=== PATIENT | male | born 1970 | race Caucasian/White ===

== ENCOUNTER 2020-11-25 13:19 | Outpatient (REF) | payer OTHER, SELFPAY ==
--- NOTE | 2020-11-25 14:47 | MHC.AU.MED ---
Medical Clearance for Hearing Instrumentation Date: 12/01/20 Patient Name: Steve Singer Date of : 1970 Primary Care Provider: Laz Mims MD We have seen your patient on 11/25/20 and have determined that they are a candidate for amplification (See accompanying report). Specifically, they would benefit from: Hearing aid use in both ears There is a statute that addresses Medical Evaluation Requirements prior to fitting a patient with a hearing aid. According to [place] statute [facility] CMR:6.03(1), (a) General. Except as provided in 265 CMR 6.03(1)(b), a risk tech shall not sell a hearing aid unless the prospective user has presented to the risk tech a written statement signed by a licensed physician that states that the patient's hearing loss has been medically evaluated and the patient may be considered a candidate for a hearing aid. The medical evaluation must have taken place within the preceding six months. Please note: Due to the [place] Statute referenced above, we cannot accept a signature other than that of a licensed physician. HEALTH CARE SANITARY TECHNICIAN and PA signatures cannot be accepted. I am in agreement with the above recommendation. There is no medical contraindication for hearing instrumentation. Physician Signature Date Physician Name (Printed)
--- NOTE | 2020-11-25 17:13 | MHC.AU.HAS ---
Hearing Aid Evaluation Date of Visit: 11/25/20 Historical Information: Description of Hearing: Right ear- Normal at 250 Hz, sloping to a mild to severe sensorineural hearing loss from 500-8000 Hz. Left ear- Mild sloping to severe sensorineural hearing loss from 250-8000 Hz. Current personal amplification information, if applicable: Older model Oticon miniRITE Summary: Mr. Singer was seen today for a hearing aid evaluation. He is working with [facility] to get new hearing aids. His current aids are no longer working and he has significant difficulties communicating without them. Discussed hearing aid options and technologies. Recommend updated Oticon CRAIG aids. He is agreeable to this. Also set patient up with a loaner set of Oticon Agil miniRITE aids (SN: [id number], [id number]) with size 2 85 gain receivers and power domes to use in the meantime, as he was having significant difficulties throughout today's visit and relied heavily on his to communicate. Hearing Aid Prescription: Based on the individual?s shared listening needs, communication environments, dexterity, desire for connectivity, and personal preferences, the following prescription for amplification has been made: Right ear: Business Continuity Planning Director: Oticon Model: More 2 miniRITE-R Battery Size: Rechargeable Color: 44 - Silver Advertising Director: Size 2 100 gain Tubing: Type of Dome: Type of Mold: Power mold Left ear: Left ear prescription to be same as Right Hearing Aid above: Business Continuity Planning Director: Oticon Model: More 2 miniRITE-R Battery Size: Rechargeable Color: 44 - Silver Advertising Director: Size 2 100 gain Type of Mold: Power mold Plan of Care: Earmold Impressions Taken. Medical Clearance to be requested from PCP/ENT. Hearing Instrument Fitting to be scheduled when materials arrive. Wheeler quote being sent to [facility]. Once approved, hearing aids will be ordered. Primary Diagnosis: H90.3 Bilateral Sensorineural Hearing Loss Signature: Provider: Mike Bright, CCC-A
--- NOTE | 2020-11-25 17:14 | MHC.AU.MED ---
Medical Clearance for Hearing Instrumentation Date: 11/30/20 Patient Name: Steve Singer Date of : 1970 Referring Provider: Jeff Pedersen MD We have seen your patient on 11/25/20 and have determined that they are a candidate for amplification (See accompanying report). Specifically, they would benefit from: Hearing aid use in both ears There is a statute that addresses Medical Evaluation Requirements prior to fitting a patient with a hearing aid. According to [place] statute 265 CMR:6.03(1), (a) General. Except as provided in 265 CMR 6.03(1)(b), a hearing aid repair technician shall not sell a hearing aid unless the prospective user has presented to the hearing aid repair technician a written statement signed by a licensed physician that states that the patient's hearing loss has been medically evaluated and the patient may be considered a candidate for a hearing aid. The medical evaluation must have taken place within the preceding six months. Please note: Due to the [place] Statute referenced above, we cannot accept a signature other than that of a licensed physician. INDUSTRIAL TRAINER and PA signatures cannot be accepted. I am in agreement with the above recommendation. There is no medical contraindication for hearing instrumentation. Physician Signature Date Physician Name (Printed)
== END 2020-11-25 13:20 | disposition home or self-care (01) ==
LOC: HO.HAP 13:19
PROVIDERS: Visit Provider Internal Medicine
DX: Z46.1 Encounter for fitting and adjustment of hearing aid (principal); H90.3 Sensorineural hearing loss, bilateral
CPT/HCPCS: 92591

== ENCOUNTER 2021-08-10 14:50 | Outpatient (REF) | payer SELFPAY | END 2021-08-10 14:51 | disposition home or self-care (01) | LOC: HO.HAP 14:50 | PROVIDERS: Visit Provider Internal Medicine | DX: Z13.89 Encounter for screening for other disorder (principal) ==

== ENCOUNTER 2022-09-19 08:38 | Outpatient (REF) | payer SELFPAY | END 2022-09-19 08:39 | disposition home or self-care (01) | LOC: HO.HAP 08:38 | PROVIDERS: Visit Provider Internal Medicine | DX: Z46.1 Encounter for fitting and adjustment of hearing aid (principal); H90.3 Sensorineural hearing loss, bilateral | CPT/HCPCS: V5267 ==

== ENCOUNTER 2023-12-01 10:46 | Outpatient (REF) | payer SELFPAY ==
--- NOTE | 2023-12-01 11:30 | MHC.AU.HA3 ---
Hearing Instrument Follow-Up- Binaural Date of Visit: 12/01/23 Right Ear: Luis, Model, Color, Serial Number: [id number] Route Inspector Repair Warranty: 01/10/2024 Route Inspector Loss and Damage Warranty: 01/10/2024 [facility] Service Plan: 12/17/21 Battery Size: Rechargeable Technical Translator/Slim Tube: Size 2 100 gain Earmold/Dome/CShell/SlimTip:Power mold SN: [id number] Warranty: 01/10/2024 Type of Wax Guard: Prowax Dispensed By: [facility] Date of Fittin12/17/2020 Left Ear: Luis, Model, Color, Serial Number: [id number] Route Inspector Repair Warranty: 01/10/2024 Route Inspector Loss and Damage Warranty: 01/10/2024 [facility] Service Plan: 12/17/21 Battery Size: Rechargeable Technical Translator/Slim Tube: Size 2 100 gain Earmold/Dome/CShell/SlimTip: Power mold SN: [id number] Warranty: 01/10/2024 Type of Wax Guard: Prowax Dispensed By: [facility] Date of Fittin12/17/2020 Follow-Up Summary: Steve is here with both hearing aids not charging. Left embedded machine deicer element winder earmold machine deicer element winder wire is also broken with part of it stuck in the hearing aid. Sending his aids, molds, and blood bank attendant for under warranty repair. Prepared loaners for him. Checked his ears due to concern for wax. Found hard appearing cerumen deep in canals, recommended use of wax softening drops to manage. Recommendations: Recommendations: Patient will be contacted when materials have arrived. Call to nut picker aids & blood bank attendant, return loaners & blood bank attendant, appointment not needed. Diagnosis Code(s): Primary Diagnosis: H90.3 Bilateral Sensorineural Hearing Loss Signature: Provider: Mega Buckner, [facility]
== END 2023-12-01 10:47 | disposition home or self-care (01) ==
LOC: HO.HAP 10:46
PROVIDERS: Visit Provider Internal Medicine
DX: Z46.1 Encounter for fitting and adjustment of hearing aid (principal); H90.3 Sensorineural hearing loss, bilateral
CPT/HCPCS: 92593

== ENCOUNTER 2024-01-22 09:16 | Outpatient (REF) | payer SELFPAY | END 2024-01-22 09:17 | disposition home or self-care (01) | LOC: HO.HAP 09:16 | PROVIDERS: Visit Provider Internal Medicine Endocrinology, Diabetes & Metabolism | DX: Z13.89 Encounter for screening for other disorder (principal) ==